=== PATIENT | female | born 1995 | race African-American/Black ===

== ENCOUNTER 2024-04-12 10:18 | Emergency (ER) | payer SELFPAY ==
[2024-04-12 10:20] VITALS: BP 137/93
--- NOTE | 2024-04-12 10:24 | ED.GENMED ---
ED Provider Triage
<Lou Lee PA-C - Last Filed: 04/12/24 10:28>
-
Patient seen by provider in Triage?: Seen in Triage
Attestation: A medical screening examination has been initiated by a qualified medical provider. Based on the assessment performed at this time, it has been determined that an emergent medical condition may exist and the patient has been informed
that further medical evaluation and possible additional diagnostic testing may be needed.
HPI: 28yoF here with nausea and vomiting. Went to [facility] ED on 04/07/24 and found out she was . Had an ultrasound done and told she was 6 weeks along. Was given a prescription for a nausea medication but it is not helping.
GENERAL: Alert , in no apparent distress
EYE: No visual abnormalities.
NECK: Trachea midline
ENT: No visible abnormalities.
LUNGS: No acute respiratory distress
NEUROLOGICAL: Alert and oriented
SKIN: Skin intact. No visible changes.
MUSCULOSKELETAL: Moving extremities normally
PSYCH: Normal and appropriate interaction.
This is a medical evaluation conducted in person to initiate diagnostic evaluation and provide initial therapeutics. Please see further documentation by the treating clinician.
CBC, CMP, magnesium, quantitative HCG ordered. Will give ODT Zofran in triage.
History of Present Illness
<Lou Lee PA-C - Last Filed: 04/12/24 10:28>
General
Chief Complaint: Problems
Time Seen by Provider: 04/12/24 11:16
<Rebecca Rivas PA-C - Last Filed: 04/12/24 18:54>
General
Source: patient
Exam Limitations: none
Nursing documentation reviewed up to this point in time: agreed with
History of Present Illness
History of Present Illness:
Patient is a 28-year-old female at approximately 6 weeks gestation presenting to the emergency department with intractable nausea vomiting. Patient states she has been unable to tolerate any p.o. food/open over the past 4 days. She feels
extremity hydrated. She endorses frequent nausea/vomiting. No significant abdominal pain or diarrhea. No fevers or chills. No vaginal bleeding or discharge. No chest pain or shortness of breath. No back pain.
Patient was seen at [facility] emergency department 04/07/24 where she was found to be with a documented intrauterine . This is patient's third �she reports very similar symptoms with prior pregnancies, however she has
miscarried the other 2 times.
No sick contacts.
Patient is currently attempting to get a appoint with an PRODUCT DEVELOPMENT ASSISTANT.
Past History
<Lou Lee PA-C - Last Filed: 04/12/24 10:28>
Past History
ED Past Medical History: None
ED Past Surgical History: None
Social History
Tobacco: Non-smoker
Alcohol: None
Drug: None
Personal: Single
Living: with family
Review of Systems
<Rebecca Rivas PA-C - Last Filed: 04/12/24 18:54>
Review of Systems
Allergies reviewed?: Yes
All Other Systems: ROS reviewed and negative except as documented in HPI and ROS
Phy Exam
<Rebecca Rivas PA-C - Last Filed: 04/12/24 18:54>
Physical Exam
Physical Exam:
Vitals: Tachycardic, mildly hypertensive, otherwise vital stable.
General: Patient is well appearing, no acute distress. Nontoxic appearing
Skin: Warm and dry, no rashes or lesions
Head: Normocephalic, atraumatic
Eyes: Sclera nonicteric. EOMs intact. No nystagmus.
Throat: Dry mucous membranes. Protecting airway
Neck: Normal ROM, no cervical spine tenderness, no meningismus
Cardiac: Tachycardic, normal rhythm, no murmurs.
Pulm: Normal respiratory effort, no wheezes, rales, rhonchi heard on exam.
Abdomen: Abdomen soft. No abdominal tenderness. No rebound tenderness or guarding
Extremities: No evidence of cyanosis or edema. Perfusing well. Cap refill wnl
Neuro: AAOx3. Grossly intact.
Psychiatric: Normal affect.
Course
<Lou Lee PA-C - Last Filed: 04/12/24 10:28>
Orders/Labs/Results
Orders:
Orders
04/12/24 10:26
Ondansetron Orally Disint [Zofran Odt (Orally Disintegrating)] 4 mg PO NOW STA
04/12/24 10:35
Beta HCG Quantitative Urgent
Is this a screen?: No
Complete Blood Count/With Diff Urgent
Comprehensive Metabolic Panel Urgent
Magnesium Urgent
04/12/24 11:25
0.9% Sodium Chloride 1000 ml [Nss] 1,000 ml IV BOLUS
Potassium Chloride [KCl] 40 meq PO NOW STA
04/12/24 11:55
Urinalysis Reflex To Culture Urgent
Date Specimen was Collected: 04/12/24
Time Specimen was Collected: 11:52
Urine Microscopic Reflex Cult Urgent
Urine Culture Urgent
TUAN Source: U
Specimen Description:
Date Specimen was Collected: 04/12/24
Time Specimen was Collected: 11:52
04/12/24 12:02
US 1st Trimester Urgent
Comment:
Reason For Exam: intractable N/V, hx recurrent miscarriage
Abnormal Lab Results
04/12/24 04/12/24
10:35 11:55
WBC 15.4 H 10^3/uL
(4.8-10.8)
Abs Immat Gran (auto) 0.1 H 10^3/uL
(0-0.05)
Absolute Neuts (auto) 12.1 H 10^3/uL
(1.4-6.5)
Absolute Monos (auto) 0.9 H 10^3/uL
(0.1-0.6)
Neutrophils % 78.6 H %
(42.2-75.2)
Lymphocytes % 14.7 L %
(20.5-51.1)
Potassium 3.1 L mmol/L
(3.5-5.1)
Chloride 91 L mmol/L
(98-107)
Glucose 120 H mg/dl
(70-99)
Calcium 10.7 H mg/dl
(8.4-10.2)
Magnesium 2.4 H mg/dl
(1.6-2.3)
Total Protein 8.9 H g/dl
(6.3-8.2)
Albumin 5.2 H g/dl
(3.5-5.0)
Urine Ketones 2+ A
(Negative)
Ur Occult Blood Reflex Trace A
(Negative)
Leukocyte Esterase Rfl Trace A
(Negative)
Urine RBC 3-6 A /HPF
(0-2)
Urine Bacteria (Reflex) Moderate A
(Negative)
04/12/24 10:35
04/12/24 10:35
Vital Signs
Initial and Last Documented VS:
Initial Vital Signs
Temp Pulse Resp BP Pulse Ox
98.6 F 112 18 137/93 100
04/12/24 10:20 04/12/24 10:20 04/12/24 10:20 04/12/24 10:20 04/12/24 10:20
Last Documented Vital Signs
Temp Pulse Resp BP Pulse Ox
98.6 F 70 18 118/68 99
04/12/24 10:20 04/12/24 15:38 04/12/24 15:38 04/12/24 15:38 04/12/24 15:38
<Rebecca Rivas PA-C - Last Filed: 04/12/24 18:54>
Orders/Labs/Results
Orders:
Orders
04/12/24 10:26
Ondansetron Orally Disint [Zofran Odt (Orally Disintegrating)] 4 mg PO NOW STA
04/12/24 10:35
Beta HCG Quantitative Urgent
Is this a screen?: No
Complete Blood Count/With Diff Urgent
Comprehensive Metabolic Panel Urgent
Magnesium Urgent
04/12/24 11:25
0.9% Sodium Chloride 1000 ml [Nss] 1,000 ml IV BOLUS
Potassium Chloride [KCl] 40 meq PO NOW STA
04/12/24 11:55
Urinalysis Reflex To Culture Urgent
Date Specimen was Collected: 04/12/24
Time Specimen was Collected: 11:52
Urine Microscopic Reflex Cult Urgent
Urine Culture Urgent
TUAN Source: U
Specimen Description:
Date Specimen was Collected: 04/12/24
Time Specimen was Collected: 11:52
04/12/24 12:02
US 1st Trimester Urgent
Comment:
Reason For Exam: intractable N/V, hx recurrent miscarriage
Abnormal Lab Results
04/12/24 04/12/24
10:35 11:55
WBC 15.4 H 10^3/uL
(4.8-10.8)
Abs Immat Gran (auto) 0.1 H 10^3/uL
(0-0.05)
Absolute Neuts (auto) 12.1 H 10^3/uL
(1.4-6.5)
Absolute Monos (auto) 0.9 H 10^3/uL
(0.1-0.6)
Neutrophils % 78.6 H %
(42.2-75.2)
Lymphocytes % 14.7 L %
(20.5-51.1)
Potassium 3.1 L mmol/L
(3.5-5.1)
Chloride 91 L mmol/L
(98-107)
Glucose 120 H mg/dl
(70-99)
Calcium 10.7 H mg/dl
(8.4-10.2)
Magnesium 2.4 H mg/dl
(1.6-2.3)
Total Protein 8.9 H g/dl
(6.3-8.2)
Albumin 5.2 H g/dl
(3.5-5.0)
Urine Ketones 2+ A
(Negative)
Ur Occult Blood Reflex Trace A
(Negative)
Leukocyte Esterase Rfl Trace A
(Negative)
Urine RBC 3-6 A /HPF
(0-2)
Urine Bacteria (Reflex) Moderate A
(Negative)
04/12/24 10:35
04/12/24 10:35
Vital Signs
Initial and Last Documented VS:
Initial Vital Signs
Temp Pulse Resp BP Pulse Ox
98.6 F 112 18 137/93 100
04/12/24 10:20 04/12/24 10:20 04/12/24 10:20 04/12/24 10:20 04/12/24 10:20
Last Documented Vital Signs
Temp Pulse Resp BP Pulse Ox
98.6 F 70 18 118/68 99
04/12/24 10:20 04/12/24 15:38 04/12/24 15:38 04/12/24 15:38 04/12/24 15:38
Information
Weeks gestation: Weeks: (6W2D)
Location: Location: (Intrauterine)
<Rebecca Rivas PA-C - Last Filed: 04/12/24 18:54>
MDM/Problems Addressed
Differential Diagnosis Includes:
Not limited to: Acute dehydration, viral gastroenteritis, hyperemesis gravidarum, UTI
MDM/Problems Addressed:
Patient is a 28-year-old female approximately 6 weeks gestation presenting with intractable nausea/vomiting. No fevers or abdominal pain. No urinary symptoms. No sick contacts. On arrival�patient is tachycardic and mildly hypertensive although
resolved by my assessment. Physical exam as above. Labs initiated in triage significant for a leukocytosis of 15.4. She does have mild hypokalemia with a K of 3.1. Beta hCG elevated. Low suspicion for acute infectious process given patient is
afebrile with benign abdominal exam. Leukocytosis likely reactive from repetitive vomiting and dehydration. High suspicion for hyperemesis gravidarum. Will obtain urinalysis and check for trimester ultrasound. Patient was given p.o. Zofran prior
to my assessment and has not had any episodes of vomiting since. Will give liter of IV fluids and replete potassium. Will closely monitor and reassess.
Update: Urine with moderate bacteria although many squamous cells suggesting likely contamination. Patient is asymptomatic and given not convincing specimen we will hold on antibiotics pending culture. Pelvic ultrasound does show a single live
intrauterine gestation approximately 6 weeks 2 days. Patient has received a liter of IV fluids in the emergency department. She is tolerating p.o. water and ate a sandwich and chips without any repeat vomiting. Vitals have remained stable. Feel
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 Will give Compazine prescription if recurrent
vomiting. Recommended potassium rich foods. Close return precaution discussed.
Chronic conditions affecting care:
History of hyperemesis gravidarum with prior
Acute Exacerbation and/or Progression of Chronic Illness:
N/A
<Rebecca Rivas PA-C - Last Filed: 04/12/24 18:54>
*Radiology
Radiology exam reviewed: radiology read reviewed (Single live intrauterine gestation, 6 weeks 2 days)
*Pulse Oximetry
Patient hypoxic: no
*EKG
Interpreted by ED Provider?: NA
*Unit Secy Interpretation
Rate: Unit Secy- N/A
*Critical Care Note
Total Time (30-74mins, 75-104mins- exclusive of procedures): Not Applicable
Data Reviewed
Review of Other/Old Records Reveals: Records (Prior emergency department visits for hyperemesis gravidarum 12/02/21)
Source: previous hospital records
<Rebecca Rivas PA-C - Last Filed: 04/12/24 18:54>
Patient Management
Escalation/DeEscalation of care consider admission/obs:
Considered admission although patient is tolerating p.o. liquids/food with stable vital signs�stable for discharge home
ED Attending Note
<Lou Lee PA-C - Last Filed: 04/12/24 10:28>
-
Portions of this chart may have been created with voice recognition software.� Occasional wrong word or��sound alike� substitutions may have occurred due to the inherent limitations of voice recognition software.
Discharge Plan
Departure
Patient Disposition: Home (Routine Discharge)
Date of Disposition: 04/12/24
Time of Disposition: 15:19
Patient with high blood pressure during this ER visit?: No
Discharge Problem:
Hyperemesis gravidarum
Instructions: Hyperemesis Gravidarum (DC), High-potassium diet
Prescriptions:
New
prochlorperazine maleate 10 mg tablet
10 mg PO Q8H PRN (Reason: nausea and vomiting) Qty: 10 0RF
No Action
metoclopramide HCl 10 MG tablet
10 mg PO Q8HPRN PRN (Reason: nausea) Qty: 20 0RF
metoclopramide HCl 10 MG tablet
10 mg PO PRN PRN (Reason: nausea and vomiting) Qty: 12 0RF
metoclopramide HCl [Reglan] 10 mg tablet
10 mg PO Q8HPRN PRN (Reason: nausea and vomiting) Qty: 30 0RF
Referrals:
Miles Cervantes MD [Family Provider] -
Karley Talley DO [Active] - Next open appointment
Activity Restrictions/Additional Instructions:
Return to the emergency department any high fevers, intractable nausea/vomiting, severe abdominal pain, vaginal bleeding or loss of fluids, signs of severe dehydration, or any other concerns
-A prescription for an antinausea has been sent to your pharmacy. You can take this up to every 8 hours as needed for persistent nausea/vomiting
-Your potassium was low while in the emergency department today. You were given potassium supplementation. However�you should try to eat a high potassium diet.
-Stay very well-hydrated.
-Follow-up with PRODUCT DEVELOPMENT ASSISTANT for further care. Contact information has been provided for you above.
Monitor your symptoms closely return to the emergency department any acute worsening/new symptoms or any other concerns
Interventions
Interventions:
*Risk Screen - Suicide Last Done: 04/12/24 10:20
*General Assessment Last Done: 04/12/24 10:20
*Neglect/Abuse Screening Last Done: 04/12/24 10:20
*ED COVID-19 Vaccine History Last Done: 04/12/24 10:20
*Nursing Disposition Last Done: 04/12/24 15:44
ED-Female Genitourinary Assessment Last Done: 04/12/24 15:38
Discharge Date and Time
Discharge Date/Time: 04/12/24 15:46
Print Language: [id number]
[2024-04-12] MEDS: ZOFRAN ODT (ORALLY DISINTEGRATING) 4 MG PO (10:33)
[2024-04-12 10:50] LABS: % Basophils 0.1 % (0-2); % Eosinophils 0.1 % (0-6); % Immature Granulocytes 0.5 % (0-0.5); % Lymphocytes 14.7 % (20.5-51.1); % Neutrophils 78.6 % (42.2-75.2); Absolute Immature Granulocytes 0.1 10^3/uL (0-0.05); Absolute Lymphocytes 2.3 10^3/uL (1.2-3.4); Absolute Monocytes 0.9 10^3/uL (0.1-0.6); Absolute Neutrophils 12.1 10^3/uL (1.4-6.5); Hematocrit 40.7 % (37.0-47.0); Hemoglobin 14.7 g/dL (12.0-16.0); Mean Corp Hgb Conc. 36.1 g/dL (33.0-37.0); Mean Corpuscular Hgb 30.3 pg (27.0-31.0); Mean Corpuscular Volume 83.9 fL (81.0-99.0); Mean Platelet Volume 10.3 fL (7.4-10.4); Nucleated Red Blood Cells % 0 %; Platelet Count 382 10^3/uL (130-400); Red Blood Cell Count 4.85 10^6/uL (4.20-5.40); Red Cell Dist. Width 11.9 % (11.5-14.5); White Blood Cell Count 15.4 10^3/uL (4.8-10.8)
[2024-04-12 11:14] LABS: ALT (SGPT) 19 U/L (0-35); AST (SGOT) 24 U/L (14-36); Albumin 5.2 g/dl (3.5-5.0); Alkaline Phosphatase 76 U/L (38-126); Blood Urea Nitrogen 10 mg/dl (7-17); Calcium 10.7 mg/dl (8.4-10.2); Carbon Dioxide 30 mmol/L (22-30); Chloride 91 mmol/L (98-107); Glucose 120 mg/dl (70-99); Magnesium 2.4 mg/dl (1.6-2.3); Potassium 3.1 mmol/L (3.5-5.1); Sodium 137 mmol/L (135-145); Total Bilirubin 0.7 mg/dl (0.2-1.3); Total Protein 8.9 g/dl (6.3-8.2); eGFR > 60.00
[2024-04-12] MEDS: KCL 40 MEQ PO (11:30)
[2024-04-12] MEDS: NSS 1000 IV (11:31)
[2024-04-12 12:14] LABS: Urine Albumin Trace (Neg - Trace); Urine Bilirubin Negative (Negative); Urine Character Slightly Cloudy (Clear); Urine Color Yellow; Urine Glucose Negative (Negative); Urine Ketone 2+ (Negative); Urine Leukocyte Trace (Negative); Urine Nitrite Negative (Negative); Urine Occult Blood Trace (Negative); Urine Specific Gravity 1.015 (<1.030); Urine Urobilinogen 1+ (Neg - 1+)
[2024-04-12 13:18] LABS: Urine Amorphous Seen; Urine Squamous Cell 26-30 /LPF (Few)
[2024-04-12 13:19] LABS: Urine Hyaline Cast 0-2 /LPF (0-2)
[2024-04-12 13:21] LABS: Urine Bacteria Moderate (Negative)
[2024-04-12 15:38] VITALS: BP 118/68
== END 2024-04-12 15:46 | disposition home or self-care (01) ==
LOC: EMR 10:18
PROVIDERS: Physician Assistant; EMERGENCY PHYSICIAN Emergency Medicine; FAMILY PHYSICIAN Family Medicine
DX: O21.1 Hyperemesis gravidarum with metabolic disturbance (principal); Z3A.01 Less than 8 weeks gestation of pregnancy; O99.111 Other diseases of the blood and blood-forming organs and certain disorders involving the immune mechanism complicating pregnancy, first trimester; E86.0 Dehydration
CPT/HCPCS: 99284; 96360; 76801; 80053; 81003; 81015; 83735; 84702; 85025; 87086